=== PATIENT | female | born 1940 | race Caucasian/White ===

== ENCOUNTER 2017-03-18 12:04 | Inpatient (IN) | payer MEDICARE, BC ==
[2017-03-18] VITALS (423 sets, daily range): BP systolic 94–103; BP diastolic 49–58; PULSE 73–84; TEMP 97–98; O2SAT 59–100
[~2017-03-18] VITALS: Ht 165.1 cm; Wt 105.4 kg
[~2017-03-18 12:04] MED LIST: LOPRESSOR 550 MG/TAB PO; NORCO 325 MG-7.1 TAB PO; PRINZIDE 12.5 M1 TAB PO; PROZAC 20MG20 MG PO; RT ADVAIR 228 DISKUS IH; XANAX 0.5MG0.5 MG PO
[2017-03-18 12:36] LABS: HEMATOCRIT 42.8 % (37.0-47.0); HEMOGLOBIN 13.9 g/dl (12.5-16.0); MEAN CELL VOLUME 91 fl (80.0-100.0); MEAN CORPUSCULAR HEMOGLOBIN 30 pg (27.0-31.0); MEAN CORPUSCULAR HGB CONC 33 g/dl (33.0-37.0); MEAN PLATELET VOLUME 10.5 fl (7.4-10.4); PLATELET COUNT 227 K/mm3 (130-400); RED BLOOD COUNT 4.69 M/mm3 (4.10-5.30); REDCELL DISTRIBUTION WIDTH-CV 13.5 % (11.5-14.5); WHITE BLOOD COUNT 11.2 K/mm3 (4.8-10.8)
[2017-03-18 12:38] LABS: ADD PATHOLOGY DIFF REVIEW NO
[2017-03-18 12:41] LABS: CALCIUM 9.1 mg/dL (8.4-10.2); CREATININE, serum 1.69 mg/dL (0.52-1.25); POTASSIUM 4.2 mmol/L (3.4-5.0)
[2017-03-18 12:56] LABS: TROPONIN-I 0.412 ng/mL (0.000-0.034)
[2017-03-18 13:08] LABS: BAND 35 % (0-10); NEUTROPHILS 35 % (42.0-75.2); PLATELET ESTIMATE NORMAL (NORMAL); TOTAL CELLS COUNTED 100
[2017-03-18 14:20] LABS: PH 5 (5-8); URINE APPEARANCE Cloudy; URINE BACTERIA Moderate /hpf; URINE BILIRUBIN Negative (NEGATIVE); URINE BLOOD 1+ (NEGATIVE); URINE COLOR Amber; URINE GLUCOSE Negative (NEGATIVE); URINE KETONE Negative (NEGATIVE); URINE RBC 0-2 /hpf; URINE UROBILINOGEN >=4.0 mg/dL (NEGATIVE)
[2017-03-18 17:23] LABS: ARTERIAL BLOOD GAS BASE EXCESS -5.1 (-2-2); ARTERIAL BLOOD GAS HCO3 22.3 meq/L (22-26); ARTERIAL BLOOD GAS PO2 77.6 mmHg (80-100); ARTERIAL BLOOD GAS pH 7.26 (7.35-7.45)
[2017-03-18 17:24] LABS: ALLEN TEST NO; ARTERIAL BLD GAS TCO2 CT 23.9; ATS? YES
[2017-03-18 20:06] LABS: ARTERIAL BLD GAS O2 SATURATION 96.1 % (92-100); ARTERIAL BLD GAS TCO2 CT 25.5; ARTERIAL BLOOD GAS BASE EXCESS -2.6 (-2-2); ARTERIAL BLOOD GAS PHT 7.31 C (7.35-7.45); ARTERIAL BLOOD GAS PO2 88.8 mmHg (80-100); ARTERIAL BLOOD GAS PO2T 88.8 (80-100); ARTERIAL BLOOD GAS pH 7.31 (7.35-7.45)
[2017-03-18 20:07] LABS: ALLEN TEST YES; ALLENS TEST RESULT PASS; ATS? YES
[2017-03-18 20:11] LABS: INFLUENZA B NEGATIVE
[2017-03-19] VITALS (939 sets, daily range): BP systolic 107–145; BP diastolic 57–87; PULSE 69–82; TEMP 96.4–98.6; O2SAT 69–100
[2017-03-19 01:59] LABS: ARTERIAL BLOOD GAS HCO3 25.1 meq/L (22-26); ARTERIAL BLOOD GAS PO2 86.8 mmHg (80-100); ARTERIAL BLOOD GAS pH 7.29 (7.35-7.45)
[2017-03-19 02:00] LABS: ALLEN TEST YES; ARTERIAL BLD GAS O2 SATURATION 95.4 % (92-100); ARTERIAL BLOOD GAS BASE EXCESS -2.1 (-2-2); ATS? YES
[2017-03-19] MEDS ORDERED: PRINZIDE 12.5 M1 TAB PO (02:00)
[2017-03-19 02:46] LABS: CREATININE, serum 1.63 mg/dL (0.52-1.25); POTASSIUM 3.9 mmol/L (3.4-5.0)
[2017-03-19 02:49] LABS: MEAN CELL VOLUME 93 fl (80.0-100.0); MEAN CORPUSCULAR HGB CONC 32 g/dl (33.0-37.0); MEAN PLATELET VOLUME 9.8 fl (7.4-10.4); PLATELET COUNT 194 K/mm3 (130-400); RED BLOOD COUNT 3.91 M/mm3 (4.10-5.30); REDCELL DISTRIBUTION WIDTH-CV 13.5 % (11.5-14.5); WHITE BLOOD COUNT 8.6 K/mm3 (4.8-10.8)
[2017-03-19 03:19] LABS: ADD PATHOLOGY DIFF REVIEW NO; HEMATOCRIT 36.5 % (37.0-47.0); HEMOGLOBIN 11.5 g/dl (12.5-16.0); MEAN CORPUSCULAR HEMOGLOBIN 29 pg (27.0-31.0)
[2017-03-19 05:36] LABS: BAND 63 % (0-10); METAMYELOCYTE 2 % (0-0); NEUTROPHILS 13 % (42.0-75.2); PLATELET ESTIMATE NORMAL (NORMAL); TOTAL CELLS COUNTED 100
[2017-03-19 14:03] LABS: ARTERIAL BLD GAS O2 SATURATION 95.3 % (92-100); ARTERIAL BLD GAS TCO2 CT 23.8; ARTERIAL BLOOD GAS BASE EXCESS -3.6 (-2-2); ARTERIAL BLOOD GAS HCO3 22.5 meq/L (22-26); ARTERIAL BLOOD GAS PO2 82.8 mmHg (80-100); ARTERIAL BLOOD GAS pH 7.32 (7.35-7.45); OXYHEMOGLOBIN 94.4 %
[2017-03-19 14:05] LABS: ATS? YES
[2017-03-19 14:06] LABS: ABG VENTILATOR TIDAL VOLUME 522 mL
[2017-03-20] VITALS (633 sets, daily range): BP systolic 146–169; BP diastolic 65–99; PULSE 69–85; TEMP 96.9–98.5; O2SAT 76–100
[2017-03-20 04:16] LABS: MEAN CELL VOLUME 94 fl (80.0-100.0); MEAN CORPUSCULAR HGB CONC 32 g/dl (33.0-37.0); MEAN PLATELET VOLUME 9.6 fl (7.4-10.4); PLATELET COUNT 210 K/mm3 (130-400); RED BLOOD COUNT 3.65 M/mm3 (4.10-5.30); REDCELL DISTRIBUTION WIDTH-CV 13.6 % (11.5-14.5); WHITE BLOOD COUNT 11.3 K/mm3 (4.8-10.8)
[2017-03-20 04:26] LABS: HEMATOCRIT 34.2 % (37.0-47.0); HEMOGLOBIN 10.8 g/dl (12.5-16.0); MEAN CORPUSCULAR HEMOGLOBIN 30 pg (27.0-31.0)
[2017-03-20 04:27] LABS: ADD PATHOLOGY DIFF REVIEW NO; CALCIUM 8.2 mg/dL (8.4-10.2); POTASSIUM 3.5 mmol/L (3.4-5.0)
[2017-03-20 04:39] LABS: MAGNESIUM 2.3 mg/dL (1.6-2.3); PHOSPHOROUS 2.8 mg/dL (2.5-4.5)
[2017-03-20 04:43] LABS: BAND 66 % (0-10); METAMYELOCYTE 2 % (0-0); NEUTROPHILS 19 % (42.0-75.2); PLATELET ESTIMATE NORMAL (NORMAL); TOTAL CELLS COUNTED 100
[2017-03-20 05:13] LABS: ALLEN TEST YES; ALLENS TEST RESULT PASS; ARTERIAL BLD GAS O2 SATURATION 96.8 % (92-100); ARTERIAL BLD GAS TCO2 CT 27.6; ARTERIAL BLOOD GAS BASE EXCESS -1.3 (-2-2); ARTERIAL BLOOD GAS HCO3 25.9 meq/L (22-26); ARTERIAL BLOOD GAS PO2 99.2 mmHg (80-100); ARTERIAL BLOOD GAS pH 7.29 (7.35-7.45); ATS? YES
[2017-03-21] VITALS (474 sets, daily range): BP systolic 143–185; BP diastolic 64–90; PULSE 65–75; TEMP 97.1–98.8; O2SAT 87–100
[2017-03-22] VITALS (8 sets, daily range): BP systolic 156–193; BP diastolic 63–94; PULSE 63–82; TEMP 97.6–98.6
[2017-03-22 04:37] LABS: ARTERIAL BLD GAS O2 SATURATION 96.6 % (92-100); ARTERIAL BLD GAS TCO2 CT 29.2; ARTERIAL BLOOD GAS BASE EXCESS 1.6 (-2-2); ARTERIAL BLOOD GAS HCO3 27.6 meq/L (22-26); ARTERIAL BLOOD GAS PHT 7.36 C (7.35-7.45); ARTERIAL BLOOD GAS PO2 94.7 mmHg (80-100); ARTERIAL BLOOD GAS PO2T 94.7 (80-100); ARTERIAL BLOOD GAS pH 7.36 (7.35-7.45); OXYHEMOGLOBIN 96.1 %
[2017-03-22 04:39] LABS: ALLEN TEST YES; ALLENS TEST RESULT PASS; ATS? YES
[2017-03-22 06:39] LABS: MEAN CELL VOLUME 93 fl (80.0-100.0); MEAN CORPUSCULAR HGB CONC 32 g/dl (33.0-37.0); MEAN PLATELET VOLUME 9.4 fl (7.4-10.4); PLATELET COUNT 241 K/mm3 (130-400); RED BLOOD COUNT 3.89 M/mm3 (4.10-5.30); REDCELL DISTRIBUTION WIDTH-CV 13.9 % (11.5-14.5); WHITE BLOOD COUNT 16.2 K/mm3 (4.8-10.8)
[2017-03-22 06:52] LABS: HEMATOCRIT 36.2 % (37.0-47.0); HEMOGLOBIN 11.4 g/dl (12.5-16.0); MEAN CORPUSCULAR HEMOGLOBIN 29 pg (27.0-31.0)
[2017-03-22 07:04] LABS: CALCIUM 8.2 mg/dL (8.4-10.2); CREATININE, serum 0.88 mg/dL (0.52-1.25); POTASSIUM 3.8 mmol/L (3.4-5.0)
[2017-03-22 08:05] LABS: BAND 26 % (0-10); METAMYELOCYTE 3 % (0-0); MYELOCYTE 5 % (0-0); NEUTROPHILS 48 % (42.0-75.2); PLATELET ESTIMATE NORMAL (NORMAL); TOTAL CELLS COUNTED 100
[2017-03-22 08:11] LABS: ADD PATHOLOGY DIFF REVIEW YES
[2017-03-22 08:43] LABS: PATHOLOGY DIFF REVIEW OK +
[2017-03-23 03:52] VITALS: BP 166/64; PULSE 70; TEMP 98
[2017-03-23 07:40] LABS: ADD PATHOLOGY DIFF REVIEW NO
[2017-03-23 07:53] LABS: MEAN CELL VOLUME 93 fl (80.0-100.0); MEAN CORPUSCULAR HGB CONC 32 g/dl (33.0-37.0); MEAN PLATELET VOLUME 9.3 fl (7.4-10.4); PLATELET COUNT 245 K/mm3 (130-400); RED BLOOD COUNT 3.81 M/mm3 (4.10-5.30)
[2017-03-23 07:56] LABS: HEMATOCRIT 35.4 % (37.0-47.0); HEMOGLOBIN 11.2 g/dl (12.5-16.0); MEAN CORPUSCULAR HEMOGLOBIN 29 pg (27.0-31.0); WHITE BLOOD COUNT 19.9 K/mm3 (4.8-10.8)
[2017-03-23 08:00] LABS: CALCIUM 8.3 mg/dL (8.4-10.2); CREATININE, serum 0.8 mg/dL (0.52-1.25); MAGNESIUM 2.2 mg/dL (1.6-2.3); POTASSIUM 3.5 mmol/L (3.4-5.0)
[2017-03-23 08:04] VITALS: BP 167/59; PULSE 76; TEMP 97.8
[2017-03-23 09:00] LABS: BAND 12 % (0-10); METAMYELOCYTE 6 % (0-0); MYELOCYTE 5 % (0-0); NEUTROPHILS 60 % (42.0-75.2); TOTAL CELLS COUNTED 100
[2017-03-23 09:01] LABS: PLATELET ESTIMATE NORMAL (NORMAL)
[2017-03-23 12:08] VITALS: BP 161/64; PULSE 70; TEMP 97.8
[2017-03-23 16:49] VITALS: BP 184/64; PULSE 72; TEMP 98.2
[2017-03-23 19:50] VITALS: BP 140/53; PULSE 97; TEMP 98
[2017-03-23 23:36] VITALS: BP 166/62; PULSE 71; TEMP 98
[2017-03-24 03:41] VITALS: BP 171/61; PULSE 73; TEMP 97.7
[2017-03-24 07:37] VITALS: BP 131/56; PULSE 85; TEMP 97.5
[2017-03-24 11:33] VITALS: BP 181/89; PULSE 73; TEMP 96
[2017-03-24 15:27] VITALS: BP 146/61; PULSE 77; TEMP 97.8
[2017-03-24 19:17] VITALS: BP 122/54; PULSE 93; TEMP 98.7
[2017-03-24 23:22] VITALS: BP 161/61; PULSE 69; TEMP 98.7
[2017-03-25] VITALS (7 sets, daily range): BP systolic 130–177; BP diastolic 50–74; PULSE 67–86; TEMP 97.4–98.5
[2017-03-25 06:07] LABS: INR 1.5 (0.8-3.0); PROTHROMBIN TIME 16.6 SECONDS (9.7-12.8)
[2017-03-25 12:19] LABS: MEAN CELL VOLUME 93 fl (80.0-100.0); MEAN CORPUSCULAR HGB CONC 32 g/dl (33.0-37.0); MEAN PLATELET VOLUME 9.6 fl (7.4-10.4); PLATELET COUNT 217 K/mm3 (130-400); RED BLOOD COUNT 3.42 M/mm3 (4.10-5.30)
[2017-03-25 12:24] LABS: HEMATOCRIT 31.7 % (37.0-47.0); MEAN CORPUSCULAR HEMOGLOBIN 29 pg (27.0-31.0)
[2017-03-25 12:25] LABS: ADD PATHOLOGY DIFF REVIEW NO
[2017-03-25 12:48] LABS: BAND 6 % (0-10); BASOPHIL 1 % (0-2); METAMYELOCYTE 2 % (0-0); NEUTROPHILS 78 % (42.0-75.2); TOTAL CELLS COUNTED 100
[2017-03-25 12:49] LABS: ANISOCYTOSIS 1+
[2017-03-26 03:30] VITALS: BP 170/52; PULSE 75; TEMP 97
[2017-03-26 08:17] VITALS: BP 149/82; PULSE 82; TEMP 97
[2017-03-26] MEDS ORDERED: IPRATROPIUM BROM3 M1 IH ×2 (08:44)
[2017-03-26] MEDS ORDERED: PERFOROMIS20 MCG/2 M IH (08:45)
[2017-03-26] MEDS ORDERED: NICODERM C21 MG/PATC TD (08:45)
[2017-03-26] MEDS ORDERED: HEPARIN LOCK FLU5 M1 IV ×2 (08:45)
[2017-03-26] MEDS ORDERED: IMDUR 30MG30 MG/TAB PO (08:46)
[2017-03-26] MEDS ORDERED: PLAVIX 75MG TAB75 MG PO (08:46)
[2017-03-26] MEDS ORDERED: LOPRESSOR 225 MG/TAB PO (08:46)
[2017-03-26] MEDS ORDERED: LIPITOR 40MG TA40 MG PO (08:46)
[2017-03-26] MEDS ORDERED: NORVASC 5MG5 MG/TAB PO (08:47)
[2017-03-26] MEDS ORDERED: NS INT FLUSH 1010 ML IV ×2 (08:47→08:48)
[2017-03-26] MEDS ORDERED: ASPIRIN 32325 MG/TAB PO (08:47)
[2017-03-26] MEDS ORDERED: MUCINEX1200 MG PO (08:48)
[2017-03-26] MEDS ORDERED: PROTONIX 40MG T40 MG PO (08:48)
[2017-03-26] MEDS ORDERED: FLONASEALLERGY NS (08:48)
[2017-03-26] MEDS ORDERED: PREDNISONE10 MG PO (09:21)
[2017-03-26] MEDS ORDERED: NORCO 325 MG-51 TAB PO (09:22)
[2017-03-26] MEDS ORDERED: LEVAQUIN 750MG750 M1 PO (09:27)
[2017-03-26 10:38] VITALS: BP 149/82; PULSE 82; TEMP 97
== END 2017-03-26 11:24 | DRG 189 ==
LOC: COL.ER 12:04 → ICU 13:51 → MEDICAL 03-21 14:04
PROVIDERS: Emergency Medicine; Internal Medicine; Internal Medicine Pulmonary Disease; Nurse Practitioner Family
PROC: 02HV33Z Insertion of Infusion Device into Superior Vena Cava, Percutaneous Approach (ICD-10-PCS; principal; 2017-03-19)
DX: J96.21 Acute and chronic respiratory failure with hypoxia (principal); J12.9 Viral pneumonia, unspecified; I21.4 Non-ST elevation (NSTEMI) myocardial infarction; J44.0 Chronic obstructive pulmonary disease with (acute) lower respiratory infection; J44.1 Chronic obstructive pulmonary disease with (acute) exacerbation; N17.9 Acute kidney failure, unspecified; E87.1 Hypo-osmolality and hyponatremia; Z66 Do not resuscitate; J96.22 Acute and chronic respiratory failure with hypercapnia; F17.210 Nicotine dependence, cigarettes, uncomplicated; J45.909 Unspecified asthma, uncomplicated; I10 Essential (primary) hypertension; Z85.3 Personal history of malignant neoplasm of breast; E66.01 Morbid (severe) obesity due to excess calories; Z68.39 Body mass index [BMI] 39.0-39.9, adult
CPT/HCPCS: 99223-AI; 99232-AI; 99233-AI; 99239; A4315; C1751; J0360; J0456; J0692; J0696; J1644; J1650; J1956; J2405; J2930; J3370; J3480; J7030; J7050; J7512

== ENCOUNTER 2017-03-26 11:36 | Inpatient (IN) | payer MEDICARE, BC ==
[~2017-03-26] VITALS: Ht 165.1 cm; Wt 101.1 kg
[~2017-03-26 11:36] MED LIST changes: +ASPIRIN 32325 MG/TAB PO; +FLONASEALLERGY NS; +HEPARIN LOCK FLU5 M1 IV; +IMDUR 30MG30 MG/TAB PO; +IPRATROPIUM BROM3 M1 IH; +LEVAQUIN 750MG750 M1 PO; +LIPITOR 40MG TA40 MG PO; +LOPRESSOR 225 MG/TAB PO; +MUCINEX1200 MG PO; +NICODERM C21 MG/PATC TD; +NORCO 325 MG-51 TAB PO; +NORVASC 5MG5 MG/TAB PO; +NS INT FLUSH 1010 ML IV; +PERFOROMIS20 MCG/2 M IH; +PLAVIX 75MG TAB75 MG PO; +PREDNISONE10 MG PO; +PROTONIX 40MG T40 MG PO
[2017-03-26 14:49] VITALS: BP 145/87; PULSE 80; TEMP 97.9
[2017-03-26 18:30] VITALS: BP 123/49; PULSE 74; TEMP 98.4
[2017-03-27 05:06] VITALS: BP 161/57; PULSE 78; TEMP 98.3
[2017-03-27 16:27] VITALS: BP 136/55; PULSE 71; TEMP 96.2
[2017-03-28 05:17] VITALS: BP 156/54; PULSE 77; TEMP 97.4
[2017-03-28 16:31] VITALS: BP 152/65; PULSE 81; TEMP 97.2
[2017-03-29 03:23] VITALS: BP 156/59; PULSE 66; TEMP 98.4
[2017-03-29 08:11] LABS: MEAN CELL VOLUME 95 fl (80.0-100.0); MEAN CORPUSCULAR HGB CONC 31 g/dl (33.0-37.0); MEAN PLATELET VOLUME 9.4 fl (7.4-10.4); PLATELET COUNT 241 K/mm3 (130-400); REDCELL DISTRIBUTION WIDTH-CV 14.3 % (11.5-14.5); WHITE BLOOD COUNT 11.6 K/mm3 (4.8-10.8)
[2017-03-29 08:19] LABS: HEMATOCRIT 27.5 % (37.0-47.0); HEMOGLOBIN 8.4 g/dl (12.5-16.0); MEAN CORPUSCULAR HEMOGLOBIN 29 pg (27.0-31.0)
[2017-03-29 08:22] LABS: ADD PATHOLOGY DIFF REVIEW NO
[2017-03-29 08:38] LABS: CALCIUM 8.5 mg/dL (8.4-10.2); CREATININE, serum 0.84 mg/dL (0.52-1.25); POTASSIUM 3.5 mmol/L (3.4-5.0)
[2017-03-29 08:53] LABS: BAND 4 % (0-10); EOSINOPHIL 1 % (0-4); METAMYELOCYTE 3 % (0-0); NEUTROPHILS 76 % (42.0-75.2); TOTAL CELLS COUNTED 100
[2017-03-29 16:42] VITALS: BP 158/90; PULSE 80; TEMP 97.8
[2017-03-30 06:42] VITALS: BP 173/55; PULSE 65; TEMP 99
[2017-03-30 16:16] VITALS: BP 134/45; PULSE 72; TEMP 98.8
[2017-03-31 06:30] VITALS: BP 157/57; PULSE 62; TEMP 98.1
[2017-03-31 18:00] VITALS: BP 150/54; PULSE 63; TEMP 98
[2017-04-01 05:18] VITALS: PULSE 68; TEMP 97.6
[2017-04-01 06:30] VITALS: BP 156/59; PULSE 60; TEMP 98.3
[2017-04-01 07:00] LABS: BASO % 0.2 % (0.0-2.0); EOS % 0.2 % (0-4.0); GRAN # 9.3 (1.4-6.5); GRAN % 77.4 % (42.2-75.2); LYMPH # 1.7 (1.2-3.4); MEAN CELL VOLUME 97 fl (80.0-100.0); MEAN CORPUSCULAR HGB CONC 31 g/dl (33.0-37.0); MEAN PLATELET VOLUME 9.4 fl (7.4-10.4); MONO # 0.9 (0.1-0.6); MONO % 7.1 % (1.7-9.3); PLATELET COUNT 295 K/mm3 (130-400); REDCELL DISTRIBUTION WIDTH-CV 14.7 % (11.5-14.5)
[2017-04-01 07:06] LABS: HEMATOCRIT 27.1 % (37.0-47.0); HEMOGLOBIN 8.3 g/dl (12.5-16.0); MEAN CORPUSCULAR HEMOGLOBIN 30 pg (27.0-31.0)
[2017-04-01 16:38] VITALS: BP 152/56; PULSE 64; TEMP 98.8
[2017-04-02 05:58] VITALS: BP 152/50; PULSE 63; TEMP 98
[2017-04-02 17:04] VITALS: BP 196/88; PULSE 80; TEMP 97.9
[2017-04-02 21:10] VITALS: BP 130/51
[2017-04-03 04:33] VITALS: BP 163/61; PULSE 74; TEMP 98
[2017-04-03] MEDS ORDERED: TYLENOL 325MG325 MG PO (11:42)
[2017-04-03] MEDS ORDERED: RT ADVAIR 228 DISKUS IH (11:43)
[2017-04-03] MEDS ORDERED: PREDNISONE10 MG PO (11:44)
[2017-04-03] MEDS ORDERED: VENTOLIN0.09 MG IH (11:45)
== END 2017-04-03 18:06 | disposition home or self-care (01) | DRG 947 ==
PROVIDERS: Internal Medicine
PROC: 3E0U33Z Introduction of Anti-inflammatory into Joints, Percutaneous Approach (ICD-10-PCS; principal; 2017-03-29)
DX: R53.81 Other malaise (principal); J18.9 Pneumonia, unspecified organism; J96.22 Acute and chronic respiratory failure with hypercapnia; I21.4 Non-ST elevation (NSTEMI) myocardial infarction; N17.9 Acute kidney failure, unspecified; I10 Essential (primary) hypertension; J44.9 Chronic obstructive pulmonary disease, unspecified; E66.01 Morbid (severe) obesity due to excess calories; Z68.38 Body mass index [BMI] 38.0-38.9, adult; B34.9 Viral infection, unspecified; M70.61 Trochanteric bursitis, right hip
CPT/HCPCS: 99222-AI; 99232-AI; 99239; J1644; J1650; J3301; J7512; Q9967

== ENCOUNTER → 2017-04-30 | Outpatient (CLI) | payer MEDICARE, BC ==
[~2017-04-30] MED LIST changes: +TYLENOL 325MG325 MG PO; +VENTOLIN0.09 MG IH
== END ==
LOC: COL.RAD 10:03
DX: R06.02 Shortness of breath (principal); B34.9 Viral infection, unspecified

== ENCOUNTER → 2017-08-23 | Outpatient (CLI) | payer MEDICARE, BC | LOC: MC.RAD 13:00 | DX: Z12.31 Encounter for screening mammogram for malignant neoplasm of breast (principal); Z98.890 Other specified postprocedural states ==

== ENCOUNTER → 2018-08-25 | Outpatient (CLI) | payer MEDICARE, BC | LOC: MC.RAD 13:12 | DX: Z12.31 Encounter for screening mammogram for malignant neoplasm of breast (principal) ==

== ENCOUNTER → 2018-11-17 | Outpatient (CLI) | payer MEDICARE, BC | LOC: COL.VAS 08-22 10:30 | DX: I35.8 Other nonrheumatic aortic valve disorders (principal); I27.20 Pulmonary hypertension, unspecified ==

== ENCOUNTER → 2019-08-25 | Outpatient (CLI) | payer MEDICARE, BC | LOC: MC.RAD 13:45 | DX: Z12.31 Encounter for screening mammogram for malignant neoplasm of breast (principal); C50.912 Malignant neoplasm of unspecified site of left female breast ==

== ENCOUNTER → 2020-01-07 | Outpatient (CLI) | payer MEDICARE, BC | LOC: COL.VAS 10:30 | DX: J44.9 Chronic obstructive pulmonary disease, unspecified (principal); I35.1 Nonrheumatic aortic (valve) insufficiency ==

== ENCOUNTER → 2020-08-26 | Outpatient (CLI) | payer MEDICARE, BC | LOC: MC.RAD 13:29 | DX: Z12.31 Encounter for screening mammogram for malignant neoplasm of breast (principal); Z98.890 Other specified postprocedural states ==

== ENCOUNTER → 2021-08-24 | Outpatient (CLI) | payer MEDICARE, BC | LOC: MC.RAD 14:15 | DX: Z12.31 Encounter for screening mammogram for malignant neoplasm of breast (principal) ==